=== PATIENT | male | born 1960 | race Caucasian/White ===

== ENCOUNTER → 2018-09-25 09:15 | Outpatient (CLI) | payer MEDICARE ==
[2010-03-24 11:22] VITALS: BMI 37.5
[~2018-09-25 09:15] MED LIST: ALBUTEROL SULF8.5 GM INH; ARNUITY ELLIP200 MCG INH; CALAN SR120 MG PO; CELEXA40 MG PO; FLUTICASONE PRO16 GM NASAL; FUROSEMIDE40 MG PO; LOPRESSOR25 MG PO; NEURONTIN600 MG PO; NORCO 7.5/325 T1 TA1 PO; PLAVIX75 MG PO; PROTONIX40 MG PO; XANAX0.5 MG PO; ZESTRIL40 MG PO; ZOCOR20 MG PO
--- NOTE | 2018-09-30 10:22 | ST ---
PATIENT:DINO BORDEN MEDICAL RECORD: [id number] SEX: M [facility] ORDER #: ADMISSION DATE: 09/25/18 AGE OF PATIENT: 58 REFERRING PHYSICIAN: INTERPRETING PHYSICIAN: JANETT BRO MD DATE OF SERVICE: 09/25/2018 PROCEDURE: Nuclear stress test. INDICATIONS: Angina, shortness of breath, hypertension. PROCEDURE DETAILS: The patient was exercised on standard Lexiscan protocol with 33 mCi of sestamibi injected at peak stress. Rest images were done previously with 11 mCi. FINDINGS: 1. Gated SPECT reveals mildly depressed ejection fraction at 46%. 2. Myocardial perfusion: Sestamibi was used as myocardial perfusion agent. There is reversible changes inferiorly. This includes the basal, mid, apical, inferior segments. The degree of reversibility is moderate. The amount of myocardium involved is moderate. OVERALL IMPRESSION: This is an abnormal nuclear stress test showing a mild cardiomyopathy, ejection fraction 46% with reversible ischemia inferiorly highly suggestive of hemodynamically significant coronary artery disease. We will proceed with coronary angiography as a followup study. TRANSINT:[id number] Voice Confirmation ID: [id number] DOCUMENT ID: [id number] JANETT BRO MD at 1022 CC: [id number] DICTATION DATE: 09/26/18 1301 TEST ANALYST: 09/27/18 0230 DEP CLI 09/25/[address] [id number]
[2018-10-03 08:43] VITALS: BMI 41.4
== END | disposition home or self-care (01) ==
LOC: D.HCCARDIO 09:15
DX: I25.10 Atherosclerotic heart disease of native coronary artery without angina pectoris (principal)

== ENCOUNTER 2018-10-03 08:07 | Outpatient (CLI) | payer MEDICARE ==
[~2018-10-03] VITALS: Ht 167.6 cm; Wt 116.4 kg
--- NOTE | ~2018-10-03 | HEMODYNAMI ---
PATIENT:DINO BORDEN MEDICAL RECORD: [id number] : 56 LOCATION:[facility] ADMISSION DATE: 10/03/18 Generatedon:10/03/201810:15 Patient name: DINO BORDEN Patient #: [id number] SSN: : 1960 Date of study: 10/03/2018 Page: Of Hemodynamic Procedure Report Patient Data Patient Demographics Procedure consent was obtained First Name: DINO Gender: Male Last Name: SUHA : 1960 [facility] Initial: DELFIN Age: 58 year(s) Patient #: [id number] Race: Unknown Additional ID: [id number] Contact details [address]: [address] [place] [address] State: [place] City: [place] Zip code: [address] Past Medical History Allergies: No known allergies Admission Admission Data Admission Date: 10/03/2018 Admission Time: 8:07 Height (in.): 66 BSA: 2.25 (m2) Height (cm.): 167.64 BMI: 42.61 (kg/m2) Weight (lbs.): 264 Weight (kg.): 119.75 Lab Results Lab Result Date: 10/03/2018 Lab Result Time: 8:46 Biochemistry Name Units Result Min Max BUN mg/dl 9 --(*---)-- 7 18 Creatinine mg/dl 0.9 --(-*--)-- 0.6 1.3 CBC Name Units Result Min Max Hematocrit % 44.3 --(*---)-- 42 54 Hemoglobin g/dl 15.3 --(-*--)-- 13.5 17.5 Procedure Procedure Types Cath Procedure Diagnostic Procedure [facility] w/Coronaries Sedation Charges Moderate Sedation up to 15 minutes Procedure Description Procedure Date Procedure Date: 10/03/2018 Procedure Start Time: 9:59 Procedure End Time: 10:15 Procedure Staff Name Function Salazar Rodriguez MD Performing Physician William Avendaño RT Monitor Ema Knott RT Scrub Walter King RN Nurse Procedure Data Cath Procedure Fluoroscopy Diagnostic fluoroscopy Total fluoroscopy Time: 1 time: 1 min min Diagnostic fluoroscopy Total fluoroscopy dose: 722 dose: 722 mGy mGy Contrast Material Contrast Material Type Amount (ml) Isovue 300 42 Entry Location Entry Primary Successful Side Size Upsize Upsize Entry Closure Succes sful Closure Location (Fr) 1 (Fr) 2 (Fr) Remarks Device Remarks Femoral Right 5 Fr Exoseal artery Estimated blood loss: 5 ml Diagnostic catheters Device Type Used For End Catheter Placement MULTIPACK Pigtail 5 Fr Procedure catheter MULTIPACK JL 4.0 5Fr Procedure catheter MULTIPACK 3DRC 5Fr Procedure catheter Procedure Complications No complications Procedure Medications Medication Administration Route Dosage Oxygen etCO2 Nasal cannula 2 l/min Heparin Flush Bag added to field 2 bags (1000units/500ml NS) 0.9% NaCl I.V. 100 ml/hr Lidocaine 2% added to field 20 Radial Cocktail added to field 1 syringe (Verapomil 2mg/Nitro 400mcg/Heparin 1500units) Fentanyl I.V. 50 mcg Versed I.V. 1 mg Fentanyl I.V. 50 mcg Versed I.V. 1 mg Hemodynamics Rest BSA: 2.25 (m2) HGB: 15.3 (g/dl) O2 Consumption: Estimated: 251.95 (ml/min) O2 Co nsumption indexed: Estimated:111.98 (ml/min/m) Heart Rate: 55 (bpm) Snapshots Pre Cath Intra NCS Post Cath Vital Signs Time Heart Resp SPO2 etCO2 NIBP (mmHg) Rhythm Pain Sedation Rate (ipm) (%) (mmHg) Status Level (bpm) 9:34:06 59 16 0 126/84(99) NSR 0 (11) 10(A) , No pain 9:38:18 55 16 92 0 122/76(100) NSR 0 (11) 10(A) , No pain 9:42:24 52 16 96 40.2 119/84(99) NSR 0 (11) 10(A) , No pain 9:46:27 54 17 94 14.4 100/74(83) NSR 0 (11) 10(A) , No pain 9:50:31 51 19 94 0 103/68(86) NSR 0 (11) 10(A) , No pain 9:54:35 50 18 95 0 102/66(78) NSR 0 (11) 10(A) , No pain 9:58:39 50 17 94 0 94/70(77) NSR 0 (11) 9(A) , No pain 10:02:42 52 17 95 0 100/59(77) NSR 0 (11) 9(A) , No pain 10:06:44 48 16 94 0 90/63(76) NSR 0 (11) 9(A) , No pain 10:10:45 50 17 94 0 96/61(72) NSR 0 (11) 9(A) , No pain 10:14:45 51 16 94 45.5 104/76(87) NSR 0 (11) 9(A) , No pain Medications Time Medication Route Dose Verified Delivered Reason Notes Ef fectiveness by by 9:42:37 Oxygen etCO2 2 l/min Salazar Watson Per Nasal Jennifer King RN physician cannula 9:42:48 Heparin Flush added 2 bags Salazar Watson used for Bag to Jennifer King RN procedure (1000units/500ml field NS) 9:42:58 0.9% NaCl I.V. 100 Salazar Walter Per ml/hr Jennifer King RN physician 9:43:08 Lidocaine 2% added 20ml Salazar Walkery used for to vial Jennifer King spotter driver field 9:43:19 Radial Cocktail added 1 Salazar Walkery used for (Verapomil to syringe Jennifer King spotter driver 2mg/Nitro field 400mcg/Heparin 1500units) 9:58:00 Fentanyl I.V. 50 mcg Salazar Watson for Jennifer King RN sedation 9:58:07 Versed I.V. 1 mg Salazar Watson for Jennifer King RN sedation 10:10:52 Fentanyl I.V. 50 mcg Salazar Watson for Jennifer King RN sedation 10:10:57 Versed I.V. 1 mg Salazar Watson for Jennifer King RN sedation Procedure Log Time Note 8:57:35 Signed procedure consent form obtained from patient. 8:57:37 Diagnostic Cath status Elective 8:57:38 Time tracking: Regular hours (M-F 7:00 - 5:00) 8:57:42 Plan of Care:Hemodynamics will remain stable., Cardiac rhythm will remain stable., Comfort level will be maintained., Respiratory function will remain adequate., Patient/ family verbilizes understanding of procedure., Procedure tolerated without complication., Recovers from procedure without complications.. 8:57:53 H&P Date Dictated: 09/18/2018 Within 30 days and on chart., H&P Addendum completed by physician on day of procedure. (MUST COMPLETE FOR ALL OUTPATIENTS). 8:58:01 Patient allergic to No known allergies 8:58:10 Patient Height : 66 inches 8:58:13 Patient Weight : 264 lbs 9:22:19 Walter King RN sent for patient. Start room use. 9:33:00 Vital chart was started 9:35:28 Patient received from Pre/Post Procedure Room to CCL 1 Alert and oriented. Tansferred to table in Supine position. 9:35:29 Warm blankets applied, and eric hugger turned on for patient comfort. 9:35:29 Correct patient and procedure confirmed by team. 9:35:32 ECG and BP/O2 sat monitors applied to patient. 9:35:35 Baseline sample Acquired. 9:35:40 Rhythm: sinus bradycardia 9:35:41 Full Disclosure recording started 9:35:42 Pre-procedure instructions explained to patient. 9:35:43 Pre-op teaching completed and patient verbalized understanding. 9:35:44 Family in patients room. 9:35:46 Patient NPO since Midnight. 9:35:51 Is patient on blood thinner?Yes 9:35:53 ACC The patient was administered the following blood thiners within the last 24 hours: ACCPlavix 9:42:37 Oxygen 2 l/min etCO2 Nasal cannula was administered by Walter King RN; Per physician; 9:42:48 Heparin Flush Bag (1000units/500ml NS) 2 bags added to field was administered by Walter King RN; used for procedure; 9:42:58 0.9% NaCl 100 ml/hr I.V. was administered by Walter King RN; Per physician; 9:43:08 Lidocaine 2% 20ml vial added to field was administered by Walter iKng RN; used for procedure; 9:43:19 Radial Cocktail (Verapomil 2mg/Nitro 400mcg/Heparin 1500units) 1 syringe added to field was administered by Walter King RN; used for procedure; 9:43:35 Patient diabetic? No. 9:43:50 Previous problem with sedation/anesthesia? No ? 9:43:52 Snore? Yes 9:43:53 Sleep apnea? No 9:43:54 Deviated septum? No 9:43:54 Opens mouth fully? Yes 9:43:55 Sticks out tongue? Yes 9:43:57 Airway obstruction? No ? 9:44:00 Dentures? No ? 9:44:04 Pre procedure: right dorsailis pedis pulse 1+ Palpable, but thready & weak; easily obliterated 9:44:06 Patient pain scale 0/10 ?. 9:44:08 Modified Sai's test Ulnar < 7 seconds 9:44:12 IV patent on arrival in left forearm with 0.9% NaCl at [facility]. 9:45:34 Lab Result : Creatinine 0.9 mg/dl 9:45:34 Lab Result : BUN 9 mg/dl 9:45:34 Lab Result : Hemoglobin 15.3 g/dl 9:45:34 Lab Result : Hematocrit 44.3 % 9:45:37 Lab results completed and on chart. 9:45:39 Right Radial & Right Groin area was prepped with chlora-prep and draped in sterile fashion 9:45:41 Alarms reviewed by R. N. 9:45:41 Sharps counted by scrub and verified by R.N. 9:45:44 ACIST Syringe (76172) opened to sterile field. 9:45:45 Medline Cath Pack ([id number]) opened to sterile field. 9:45:45 Bag Decanter () opened to sterile field. 9:45:46 ACIST Hand Control (17162) opened to sterile field. 9:45:46 ACIST Manifold (92139) opened to sterile field. 9:45:47 Tegaderm 4 x 4 (1626W) opened to sterile field. 9:45:47 MBrace Wrist Support ([id number]) opened to sterile field. 9:45:48 SHEATH 6FR Slender (68-1060) opened to sterile field. 9:45:50 DIAGNOSTIC WIRE .035 260cm J wire (956411) opened to sterile field. 9:49:33 Zero performed for pressure channel P1 9:57:36 Physician arrived 9:57:36 --------ALL STOP TIME OUT------ 9:57:37 Final Timeout: patient, procedure, and site verified with staff and physician. All members of the team are in agreement. 9:57:40 Right Radial & Right Groin site verified by team. 9:57:43 Physical assessment completed. ASA score P 2 - A patient with mild systemic disease as per Salazar Rodriguez MD. 9:57:45 Sedation plan: IV Moderate Sedation Medication:Versed, Fentanyl 9:58:00 Fentanyl 50 mcg I.V. was administered by Walter King RN; for sedation; 9:58:07 Versed 1 mg I.V. was administered by Walter King RN; for sedation; 9:59:08 Procedure started. 9:59:12 Local anesthetic to right radial artery with Lidocaine 2% by Salazar Rodriguez MD.INITIAL ACCESS ONLY 10:04:51 unable to gain radial access. moving to femoral approach. 10:04:56 Local anesthetic to right femoral artery with Lidocaine 2% by Salazar Rodriguez MD.ADDITIONAL ACCESS 10:05:01 SHEATH 5FR Struthers ([id number]) opened to sterile field. 10:05:33 Use device set Femoral Dx 10:05:37 DIAGNOSTIC Multipack 5Fr catheter set ([id number]) opened to sterile field. 10:06:24 A 5 Fr sheath was inserted into the Right Femoral artery 10:08:12 A MULTIPACK Pigtail 5 Fr catheter was advanced over the wire and used for Procedure. 10:09:13 LV gram done using CAMPO 10:09:15 Injector settings: Ml/sec: 10, Volume: 20, 10:09:16 LV hemodynamics recorded. 10:09:19 EF : 55 % 10:09:21 Catheter exchanged over wire. 10:09:25 A MULTIPACK JL 4.0 5Fr catheter was advanced over the wire and used for Procedure. 10:09:54 LCA angiography performed. 10:10:38 Catheter exchanged over wire. 10:10:42 A MULTIPACK 3DRC 5Fr catheter was advanced over the wire and used for Procedure. 10:10:52 Fentanyl 50 mcg I.V. was administered by Walter King RN; for sedation; 10:10:57 Versed 1 mg I.V. was administered by Walter King RN; for sedation; 10:11:49 RCA angiography performed. 10:11:50 Catheter removed. 10:11:53 EXOSEAL 5Fr (EX500) opened to sterile field. 10:12:07 Sheath removed intact; hemostasis achieved with Exoseal to the Right Femoral artery. 10:12:08 Procedure ended.(Physican Out) 10:13:40 Fluoroscopy time 01.00 minutes. 10:14:01 Fluoroscopy dose: 722 mGy 10:14: Flurop Dose total: 722 10:14:08 Contrast amount:Isovue 300 42ml. 10:14:09 Sharps counted by scrub and verified by R.N. 10:14:12 Insertion/operative site no bleeding no hematoma. 10:14:15 Post-op/insertion site Right Radial artery dressed using a Bandaid. 10:14:19 Post right femoral artery:stable, soft, clean and dry 10:14:22 Post-op/insertion site Right Femoral artery dressed using a 4 x 4 and Tegaderm. 10:14:24 Post Procedure Pulses reassessed and unchanged 10:14:26 Post-procedure physical assessment completed. ASA score P 2 - A patient with mild systemic disease as per Salazar Rodriguez MD. 10:14:27 Post procedure rhythm: unchanged. 10:14:30 Estimated blood loss: 5 ml 10:14:31 Post procedure instruction explained to patient.Patient verbalizes understanding. 10:14:31 Patient needs reinforcement of post procedure teaching. 10:14:47 Procedure type changed to Cath procedure, Diagnostic procedure, LHC, LHC w/Coronaries, Sedation Charges, Moderate Sedation up to 15 minutes 10:14:59 Procedure and supply charges have been captured, reviewed, submitted and are correct. 10:15:01 Procedure Complication : No complications 10:15:03 Vital chart was stopped 10:15:03 See physician's report for complete and final results. 10:15:04 Report given to Pre/Post Procedure Room. 10:15:06 Patient transfered to Pre/Post Procedure Room with Stretcher. 10:15:08 Procedure ended. 10:15:08 Full Disclosure recording stopped 10:15:11 End room use (Document Last) Device Usage Item Name Manufacture Quantity Catalog Hospital Part Current Minimal Lot# / Number Charge Number Stock Stock Serial# Code ACIST Acist 1 76549 898255 273401 779312 20 Syringe Medical (72028) Systems Inc Medline Medline 1 [id number] 163438 60179 201872 5 Cath Pack ([id number]) Bag Microtek 1 2001S 794859 43112 116920 5 Decanter Medical Inc. () ACIST Hand Acist 1 75998 720385 790088 527533 5 Control Medical (85990) Systems Inc ACIST Acist 1 79450 909047 728148 514047 5 Manifold Medical (72230) Systems Inc Tegaderm 4 3M 1 1626W 214030 898591 008223 5 x 4 (1626W) MBrace Advanced 1 140-0250-00 028762 32907 138305 5 Wrist Vascular Support Dynamics ([id number]) SHEATH 6FR Terumo 1 [id number] 934739 013756 793089 5 Slender (80-1060) DIAGNOSTIC St Bo 1 485867 984857 187508 085633 30 WIRE .035 260cm J wire (181751) SHEATH 5FR Terumo 1 AYL403 297431 860324 380936 5 Struthers (ZHY339) DIAGNOSTIC Cardinal 1 [id number] 086328 91449 358209 30 Multipack Health 5Fr catheter set (IK4605) MULTIPACK Cardinal 1 582453 5 Pigtail 5 Health Fr catheter MULTIPACK Cardinal 1 154608 5 JL 4.0 5Fr Health catheter MULTIPACK Cardinal 1 847515 5 3DRC 5Fr Health catheter EXOSEAL 5Fr Cardinal 1 EX500 237513 665323 358403 10 (EX500) Health Signature Audit [place] Stage Time Signature Unsigned Intra-Procedure 10/03/2018 William Avendaño 10:15:34 AM RT(R) Signatures Monitor : William Avendaño RT Signature : Date : Time : [facility] [address] [id number]
[2018-10-03] MEDS ORDERED: ZESTRIL40 MG PO (08:31)
[2018-10-03] MEDS ORDERED: FUROSEMIDE40 MG PO (08:32)
[2018-10-03] MEDS ORDERED: ZOCOR20 MG PO (08:32)
[2018-10-03] MEDS ORDERED: ALBUTEROL SULF8.5 GM INH (08:32)
[2018-10-03] MEDS ORDERED: PROTONIX40 MG PO (08:32)
[2018-10-03] MEDS ORDERED: NEURONTIN600 MG PO (08:33)
[2018-10-03] MEDS ORDERED: CELEXA40 MG PO (08:33)
[2018-10-03] MEDS ORDERED: LOPRESSOR25 MG PO (08:33)
[2018-10-03] MEDS ORDERED: PLAVIX75 MG PO (08:34)
[2018-10-03] MEDS ORDERED: ARNUITY ELLIP200 MCG INH (08:34)
[2018-10-03] MEDS ORDERED: CALAN SR120 MG PO (08:34)
[2018-10-03] MEDS ORDERED: NORCO 7.5/325 T1 TA1 PO (08:35)
[2018-10-03] MEDS ORDERED: XANAX0.5 MG PO (08:35)
[2018-10-03] MEDS ORDERED: FLUTICASONE PRO16 GM NASAL (08:36)
[2018-10-03 08:43] VITALS: BP 124/78; Ht 167.6 cm; Wt 116.4 kg
[2018-10-03 08:49] LABS: BASOPHILS 0.3 % (0-2); EOSINOPHILS 1.7 % (0-7); HEMATOCRIT 44.3 % (42.0-54.0); HEMOGLOBIN 15.3 g/dL (13.5-17.5); IMMATURE GRANULOCYTES 0.1 % (0-5); LYMPHOCYTES 14.4 % (15-50); MCH 30.4 pg (26.0-34.0); MCHC 34.5 g/dL (31.0-37.0); MCV 87.9 fL (80.0-100.0); MEAN PLATELET VOLUME 11.3 fL (7.4-10.4); MONOCYTES 9.4 % (2-11); NEUTROPHILS 74.1 % (40-80); PLATELET COUNT 183 10x3/uL (130-400); RBC 5.04 10x6/uL (4.20-6.10); RDW 14.2 % (11.5-14.5); WBC 7.6 10x3/uL (4.8-10.8)
[2018-10-03 08:58] LABS: CALC OSMOLALITY 273 mosm/kg (275-300); CALCIUM 8.2 mg/dL (8.5-10.1); CARBON DIOXIDE 27.5 mmol/L (21.0-32.0); CHLORIDE - SERUM 101 mmol/L (98-107); CREATININE - SERUM 0.9 mg/dL (0.6-1.3); GLUCOSE 109 mg/dL (74-106); POTASSIUM - SERUM 4.3 mmol/L (3.5-5.1); SODIUM 137 mmol/L (136-145); UREA NITROGEN 9 mg/dL (7-18); eGFR NON AFRICAN AMERICAN > 90 mL/min (90-120)
--- NOTE | 2018-10-03 10:40 | NUR ---
2L NC, NO RESP DISTRESS. RIGHT GROIN 5F EXOSEAL CDI, NO BLEEDING OR HEMATOMA NOTED. NO C/O PAIN OR NAUSEA. VSS. FAMILY AT BEDSIDE, CALL LIGHT WITHIN REACH.
--- NOTE | 2018-10-03 11:10 | NUR ---
RIGHT GROIN 5F EXOSEAL CDI, NO BLEEDING NOTED. DENIES ANY NEEDS. VSS. WILL CONTINUE TO MONITOR.
--- NOTE | 2018-10-03 11:28 | NUR ---
HOB ELEVATED 30 DEGREES. RIGHT GROIN 5F EXOSEAL CDI, NO BLEEDING NOTED. SIPPING ON DRINK AND EATING SANDWICH WITH NO C/O NAUSEA. VSS. WILL CONTINUE TO MONITOR CLOSELY.
--- NOTE | 2018-10-03 11:57 | NUR ---
LEFT PIV D/C'D WITH CATHETER INTACT, BAND AID TO SITE. UP TO BEDSIDE TO GET DRESSED. AMBULATED TO RESTROOM.
--- NOTE | 2018-10-03 12:05 | NUR ---
DISCHARGE INSTRUCTIONS GIVEN, VERBALIZED UNDERSTANDING.
--- NOTE | 2018-10-03 12:11 | NUR ---
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 LEFT FACILITY WITH FAMILY AND ALL PERSONAL BELONGINGS.
--- NOTE | 2018-10-10 12:11 | OP ---
PATIENT NAME: DINO BORDEN MEDICAL RECORD: [id number] :56 LOCATION:[facility] ADMISSION DATE: SURGEON: JANETT BRO MD DATE OF OPERATION: 10/03/2018 PROCEDURES: 1. Left heart catheterization. 2. Selective coronary angiography. 3. Left ventriculogram. INDICATION: Chest pain compatible with angina, coronary artery disease, and previous cardiac stenting. PROCEDURE IN DETAIL: After informed consent was obtained and after detailed description of risks, benefits as well as alternative therapies, the patient elected to proceed with angiogram and heart catheterization. The right femoral area was prepped and draped in normal sterile fashion. The right femoral artery was cannulated via modified Seldinger technique with placement of 5-Mosotho sheath. All catheters exchanged through this sheath. FINDINGS: Left ventriculogram was performed in standard 30-degree CAMPO view, reveals good cardiac wall motion throughout all segments. Overall ejection fraction estimated at 55%. SELECTIVE CORONARY ANGIOGRAPHY: 1. Left main showed no significant angiographic disease. 2. Left anterior descending has previously placed stent. This is widely patent with no significant restenosis. No disease elsewise at the LAD or its branches. 3. Left circumflex has mild irregularities, but no flow-limiting stenosis. 4. Right coronary has mild irregularities, but no flow-limiting stenosis. OVERALL IMPRESSION: Wide patency of the previously placed stent, no disease elsewise. Continue medical management of the coronary artery disease and cardiac risk factors. TRANSINT:[id number] Voice Confirmation ID: [id number] DOCUMENT ID: [id number] JANETT BRO MD at 1211 CC: [id number] DICTATION DATE: 10/03/18 1016 BEEF KILLER: 10/03/18 1120 [facility] CLI 10/03/18 [place] [address]
== END 2018-10-03 12:11 | disposition home or self-care (01) ==
LOC: D.CATH 08:07
PROVIDERS: Internal Medicine Interventional Cardiology
DX: R07.9 Chest pain, unspecified (principal); I25.10 Atherosclerotic heart disease of native coronary artery without angina pectoris